=== PATIENT | female | born 1985 | race Caucasian/White ===

== ENCOUNTER 2017-03-22 13:11 | Emergency (ER) | payer BC ==
[~2017-03-22] VITALS: Ht 149.8 cm; Wt 78.5 kg
[2017-03-22] MEDS ORDERED: MEDROL DOSEPAK4 MG PO (16:11)
[2017-03-22] MEDS ORDERED: EPIPEN 2-P0.3 MG/0.3 IJ (16:11)
== END 2017-03-22 16:15 | disposition home or self-care (01) ==
LOC: ED 13:11
DX: T78.40XA Allergy, unspecified, initial encounter (principal)

== ENCOUNTER → 2021-02-08 | Outpatient (CLI) | payer BC ==
[~2021-02-08] MED LIST: EPIPEN 2-P0.3 MG/0.3 IJ; MEDROL DOSEPAK4 MG PO
[2021-02-08 08:27] LABS: MEAN CELL VOLUME 90.7 fl (81.0-99.0); MEAN CORPUSCULAR HGB 29.3 pg (27.0-31.0); MEAN CORPUSCULAR HGB CONC 32.3 g/dl (33.0-37.0); MEAN PLATELET VOLUME 9.5 fl (9.6-12.3); RED BLOOD COUNT 4.3 10*6/uL (4.10-5.10); RED CELL DISTRI WIDTH 13.2 % (0-14.5)
[2021-02-08 08:58] LABS: ALBUMIN 3.3 gm/dl (3.1-4.5); BUN 11 mg/dl (7-24); CHLORIDE 109 mmol/L (98-107); POTASSIUM 3.4 mmol/L (3.5-5.1); SODIUM 141 mmol/L (136-145)
[2021-02-08 09:11] LABS: ALKALINE PHOSPHATASE 83 U/L (45-117); CHOLESTEROL 221 mg/dL (<200); CREATININE 0.81 mg/dL (0.55-1.02); LDL CHOLESTEROL 156 mg/dL (9-159); SGOT/AST 11 IU/L (3-35); SGPT/ALT 23 U/L (12-78); TOTAL PROTEIN 7.5 gm/dL (6.4-8.2); TRIGLYCERIDES 86 mg/dl (<150)
[2021-02-08 10:02] LABS: VITAMIN D, 25-HYDROXY 17.1 ng/mL (30-100)
== END | disposition home or self-care (01) ==
LOC: LAB 08:08
PROVIDERS: ATTEND Family Medicine
DX: F41.9 Anxiety disorder, unspecified (principal); E74.00 Glycogen storage disease, unspecified; R51.9 Headache, unspecified; R53.83 Other fatigue; Z13.220 Encounter for screening for lipoid disorders